=== PATIENT | female | born 1975 | race Caucasian/White ===

== ENCOUNTER 2017-10-30 10:12 | Day surgery (SDC) | payer OTHER ==
[~2017-10-30 10:12] MED LIST: CEFAZOLIN 2 GM/50 ML (PMX) 50 ML IVPB; SOD CHLORIDE 0.9% 1,000 ML IV
[2017-10-30 11:04] LABS: ADD MAN DIFF? NO
[2017-10-30 11:08] LABS: WHITE BLOOD COUNT 7.3 10^3/ul (4.8-10.8)
[2017-10-30 11:08] LABS: BASOPHIL # 0.1 10^3/ul (0.0-0.1); BASOPHILS % 0.7 % (0.0-2.0); EOSINOPHILS # 0.1 10^3/ul (0.0-0.5); EOSINOPHILS % 1.5 % (0.0-7.0); HEMATOCRIT 38.8 % (37.0-47.0); HEMOGLOBIN 12.3 g/dl (12.0-16.0); LYMPHOCYTES # 2.4 10^3/ul (0.8-2.9); LYMPHOCYTES % 33.1 % (15.0-51.0); MEAN CORPUSCULAR HEMOGLOBIN 25.9 pg (29.0-33.0); MEAN CORPUSCULAR HGB CONC 31.7 g/dl (32.0-37.0); MEAN CORPUSCULAR VOLUME 81.7 fl (82.0-101.0); MEAN PLATELET VOLUME 10.9 fl (7.4-10.4); MONOCYTE # 0.5 10^3/ul (0.3-0.9); MONOCYTES % 6.7 % (0.0-11.0); NEUTROPHIL # 4.2 10^3/ul (1.6-7.5); NEUTROPHILS % 57.6 % (39.0-77.0); PLATELET COUNT 313 10^3/UL (140-415); RED BLOOD COUNT 4.75 10^6/ul (4.20-5.40); RED CELL DISTRIBUTION WIDTH 14.4 % (11.5-14.5)
[2017-10-30 11:34] LABS: INR 0.93; PROTIME 12.6 Sec (11.9-14.9)
[2017-10-30 11:35] LABS: PARTIAL THROMBOPLASTIN TIME 34.9 Sec (25.0-35.0)
[2017-10-30 11:39] LABS: ALANINE AMINOTRANSFERASE 33 IU/L (13-69); ALBUMIN 4.6 g/dl (3.3-4.9); ALBUMIN/GLOBULIN RATIO 1.24; ALKALINE PHOSPHATASE 78 IU/L (42-121); ANION GAP 16 (8-16); ASPARTATE AMINO TRANSFERASE 27 IU/L (15-46); BILIRUBIN,INDIRECT 0.6 mg/dl (0-1.1); BILIRUBIN,TOTAL 0.6 mg/dl (0.2-1.3); BLOOD UREA NITROGEN 8 mg/dl (7-20); CALCIUM 9.2 mg/dl (8.4-10.2); CARBON DIOXIDE 28 mmol/L (21-31); CHLORIDE 103 mmol/L (97-110); CREATININE 0.59 mg/dl (0.44-1.00); GLUCOSE 99 mg/dl (70-220); POTASSIUM 3.8 mmol/L (3.5-5.1); SODIUM 143 mmol/L (135-144); TOTAL PROTEIN 8.3 g/dl (6.1-8.1)
[2017-10-30] MEDS ORDERED: ONDANSETRON 4 MG INJ IV (13:00)
[2017-10-30] MEDS ORDERED: MEPERIDINE 25 MG INJ IV (13:00)
[2017-10-30] MEDS ORDERED: DIPHENHYDRAMINE 50 MG INJ IV (13:00)
[2017-10-30] MEDS ORDERED: morphine (1 MG/ML) 10ML SYRINGE IV (13:00)
[2017-10-30] MEDS ORDERED: FENTAnyl 50 MCG/ML VIAL IV (13:00)
[2017-10-30] MEDS ORDERED: HYDROmorphONE 1 MG/5 ML IV SYRINGE IV (13:00)
[2017-10-30] MEDS ORDERED: PROPOFOL 20 ML ×2 (13:11→14:09)
[2017-10-30] MEDS ORDERED: MIDAZOLAM 1 MG/ML 2 ML INJ (13:11)
[2017-10-30] MEDS ORDERED: FENTAnyl 50 MCG/ML VIAL ×2 (13:11→14:06)
[2017-10-30] MEDS ORDERED: LIDOCAINE 2% (SDV) 5 ML INJ (13:14)
[2017-10-30] MEDS ORDERED: FAMOTIDINE 20 MG INJ (13:14)
[2017-10-30] MEDS ORDERED: DEXAMETHASONE 4 MG/ML 1 ML INJ (13:14)
[2017-10-30] MEDS ORDERED: CEFAZOLIN 1 GM INJ (13:14)
[2017-10-30] MEDS ORDERED: ONDANSETRON 4 MG INJ (13:15)
[2017-10-30] MEDS ORDERED: KETOROLAC 30 MG INJ (14:01)
[2017-10-30] MEDS ORDERED: EPHEDrine 25 MG/5 ML SYG (14:13)
[2017-10-30] MEDS ORDERED: PHENYLephrine (100 MCG/ML) 5ML SYG (14:23)
[2017-10-30] MEDS: OXYCODONE/ACETAMINOPHEN (5/325) TAB PO (17:40)
== END 2017-10-30 17:57 | disposition home or self-care (01) ==
LOC: SDS 10:12
DX: D17.1 Benign lipomatous neoplasm of skin and subcutaneous tissue of trunk (principal); E78.00 Pure hypercholesterolemia, unspecified
CPT/HCPCS: 11406; 80053; 85025; 85610; 85730; 88307